=== PATIENT | female | born 1990 | race Caucasian/White ===

== ENCOUNTER 2020-05-09 16:59 | Emergency (ER) | payer OTHER ==
[~2020-05-09 16:59] MED LIST: BACTRIM DS TAB1 EACH PO; HAIR SKIN NAIL1 EACH PO; METRONIDAZOLE500 MG PO; VIBRAMYCIN100 MG PO
== END 2020-05-09 20:04 | disposition home or self-care (01) ==
LOC: FER 16:59
DX: S93.401A Sprain of unspecified ligament of right ankle, initial encounter (principal); S93.601A Unspecified sprain of right foot, initial encounter; W17.89XA Other fall from one level to another, initial encounter; Y92.410 Unspecified street and highway as the place of occurrence of the external cause
CPT/HCPCS: 73610

== ENCOUNTER 2020-11-23 11:18 | Emergency (ER) | payer OTHER ==
[2020-11-23 13:53] LABS: BILIRUBIN 1+ mg/dL (NEGATIVE); BLOOD NEGATIVE Ery/uL (NEGATIVE); CLARITY CLEAR (CLEAR); COLOR YELLOW (YELLOW); GLUCOSE (U) NORMAL (NORMAL); LEUKOCYTES NEGATIVE Leu/uL (NEGATIVE); NITRITE NEGATIVE (NEGATIVE); PROTEIN TRACE (LOW) mg/dL (NEGATIVE); SPECIFIC GRAVITY >=1.030 (1.001-1.030); UROBILINOGEN 0.2 mg/dL (0.2-1.0)
[2020-11-23 13:56] LABS: HCG (URINE) SCREEN NEGATIVE (NEGATIVE)
[2020-11-23 13:57] LABS: BACTERIA TRACE; URINARY RBC RARE
[2020-11-23 13:58] LABS: GRANULAR CASTS TRACE
[2020-11-23] MEDS ORDERED: VIBRAMYCIN100 MG PO (15:00)
[2020-11-25 00:10] LABS: CHLAMYDIA TRACHOMATIS, NAA Negative (Negative); NEISSERIA GONORRHOEAE, NAA Negative (Negative)
== END 2020-11-23 15:18 | disposition home or self-care (01) ==
LOC: FER 11:18
PROVIDERS: Internal Medicine; Nurse Practitioner
DX: N89.8 Other specified noninflammatory disorders of vagina (principal); F17.290 Nicotine dependence, other tobacco product, uncomplicated; Z72.51 High risk heterosexual behavior; Z98.51 Tubal ligation status; Z86.19 Personal history of other infectious and parasitic diseases; Z88.1 Allergy status to other antibiotic agents
CPT/HCPCS: 81001; 84703; 87210; 87491; 87591; 99283